=== PATIENT | male | born 1955 | race Caucasian/White ===

== ENCOUNTER 2016-08-02 22:16 | Inpatient (IN) | payer MEDICARE ==
[~2016-08-02] VITALS: Ht 188 cm; Wt 88.8 kg
[~2016-08-02 22:16] MED LIST: ALIGN4 MG PO; ALLER-CHLOR4 MG; ALLER-CHLOR4 MG PO; AMOXICILLIN875 MG PO; ANTIVERT12.5 MG PO; ASPIRIN 81 MG E81 MG PO; ATIVAN0.5 MG PO; BAYER CHEWABLE81 MG PO; CENTRUM SILVER1 TA2 PO; CLARITIN 10 MG10 MG PO; COREG12.5 MG PO; COREG25 MG PO; DOXYCYCLINE HY100 M2 PO; FLUNISOLIDE29 MCG NASAL; FUROSEMIDE40 MG PO; KLOR-CON 1010 MEQ PO; LASIX40 MG PO; MECLIZINE HCL25 MG PO; MUCINEX DM ER1 EAC1 PO; MUCINEX600 MG PO; MUCUS RELIEF400 MG PO; MULTI-DAY VITAM1 TAB PO; PLAVIX75 MG PO; POTASSIUM CHLO10 ME1 PO; PRAVACHOL20 MG PO; PRILOSEC20 MG PO; PRINIVIL20 MG PO; PROBIOTIC1 EAC1 PO; RANEXA500 MG PO; SYMBICORT 16010.2 GM INH; VENTOLIN HFA18 GM INH; ZESTRIL20 MG PO; ZYRTEC10 MG PO
[2016-08-02 22:50] LABS: BASOPHILS 0.2 % (0.0-2.0); EOSINOPHILS 0 % (0-7); HEMATOCRIT 30.4 % (42.0-54.0); HEMOGLOBIN 10.3 g/dL (13.5-17.5); IMMATURE GRANULOCYTES 4.6 % (0-5); LYMPHOCYTES 21.7 % (15-50); MCH 32.1 pg (26.0-34.0); MCHC 33.9 g/dL (31.0-37.0); MCV 94.7 fL (80.0-100.0); MEAN PLATELET VOLUME 9.9 fL (7.4-10.4); MONOCYTES 5.9 % (2-11); NEUTROPHILS 67.6 % (40-80); PLATELET COUNT 120 10x3/uL (130-400); RBC 3.21 10x6/uL (4.20-6.10); RDW 12.1 % (11.5-14.5); WBC 6.3 10x3/uL (4.8-10.8)
[2016-08-02 22:56] LABS: INR 1.58 (0.85-1.17); PROTIME 18.8 SECONDS (11.6-15.0)
[2016-08-02 22:57] LABS: APTT 92.2 SECONDS (22.8-39.4)
[2016-08-02 23:16] LABS: ALBUMIN 2.3 g/dL (3.4-5.0); ALKALINE PHOSPHATASE 100 U/L (46-116); ALT (SGPT) 696 U/L (10-68); BILIRUBIN - TOTAL 0.48 mg/dL (0.2-1.3); CALCIUM 7.9 mg/dL (8.5-10.1); CARBON DIOXIDE 18.2 mmol/L (21.0-32.0); CKMB 47.3 U/L (0.0-3.6); CREATINE KINASE 730 UL (21-232); CREATININE - SERUM 0.7 mg/dL (0.6-1.3); POTASSIUM - SERUM 5.5 mmol/L (3.5-5.1); PROTEIN - SERUM 5.4 g/dL (6.4-8.2); UREA NITROGEN 5 mg/dL (7-18); eGFR NON AFRICAN AMERICAN > 90 mL/min (90-120)
[2016-08-02 23:26] LABS: CALC OSMOLALITY 229 mosm/kg (275-300); CHLORIDE - SERUM 78 mmol/L (98-107); GLUCOSE 68 mg/dL (74-106); SODIUM 116 mmol/L (136-145)
[2016-08-02 23:27] LABS: TROPONIN-I 1.238 ng/mL (0.000-0.060)
[2016-08-03 01:30] VITALS: BP 54/32
--- NOTE | 2016-08-03 01:30 | NUR ---
PT RECVD TO ROOM 2301 VIA STRETCHER. RT AND ER STAFF AT BEDSIDE. TRANSFERRED TO ICU BED AND PLACED ON ICU MONITORS. ETT PATENT AND SECURED TO VENT PER RT. ST ON THE MONITOR. PRESSORS IN USE VIA PIV. ABD DISTENDED. IDANIA RED BLOOD IN ORAL CAVITY. HYPOTHERMIC. TITO HUGGER IN USE. PALE/CYANOTIC. ADMISSION ASSESSMENT AND HISTORY COMPLETED. SEE FLOWSHEETS. MOM AT BEDSIDE.
[2016-08-03 01:50] VITALS: BP 54/32
[2016-08-03 02:00] VITALS: BP 74/56
--- NOTE | 2016-08-03 02:00 | NUR ---
PRESSOR SUPPORT AT MAX LEVEL. DOPAMINE, LEVOPHED, AND VASOPRESSIN GTTS INFUSING. HYPOTENSIVE. ST ON THE MONITOR. UNRESPONSIVE ON MECH VENT.
[2016-08-03 03:00] VITALS: BP 110/74
--- NOTE | 2016-08-03 03:23 | NUR ---
PEA ON THE MONITOR. NO PULSE FOUND. CPR STARTED AND BLS/ACLS PROTOCOL INITIATED. SEE CODE BLUE SHEET.
--- NOTE | 2016-08-03 03:45 | NUR ---
DR LANE AND DR SHARMA AT BEDSIDE. CODE ENDED. ST 110... PRESSOR SUPPORT AT MAX LEVEL WITH DOPAMINE, LEVOPHED, AND VASOPRESSIN GTTS.
--- NOTE | 2016-08-03 04:15 | NUR ---
NO PULSE...PEA ON THE MONITOR CODE PROTOCOL INITIATED. DR SHARMA AT BEDSIDE. SEE CODE BLUE SHEETS.
--- NOTE | 2016-08-03 04:22 | NUR ---
CODE STOPPED. NO PULSE. PEA ON THE MONITOR. DR SHARMA AT BEDSIDE.
[2016-08-03 05:30] VITALS: BP 54/32; Ht 188 cm; Wt 88.8 kg
--- NOTE | 2016-08-03 07:51 | NUR ---
[facility] HERE. BODY RELEASED.
--- NOTE | 2016-08-03 15:50 | HP ---
PATIENT: SERGIO MENESES MEDICAL RECORD: [id number] ACCOUNT: [id number] LOCATION:[facility] D.2302 : 53 ADMISSION DATE: 08/03/16 HISTORY AND PHYSICAL EXAMINATION HISTORY OF PRESENT ILLNESS: A 61-year-old white male went syncope at home, his brother began performing a CPR, ambulance was called and the patient was code blue, ambulance brought the patient in from outlying area and ACLS protocol was followed. He was found to be in asystole in the Emergency Room and ACLS protocol was followed and the patient did reestablish a heart rate and was intubated, of course and transferred to the ICU. The patient was monitored in the ICU for 2 hours and while I was doing my H&P, the patient went up bradycardic and then asystole again, ciera guo was called the second time. The patient was given 3 doses of epinephrine, 2 doses of atropine, 2 doses a bicarbonate, one 360 joule shock and was able to reestablish a rhythm, family was kept informed. PAST MEDICAL HISTORY: Significant for TIA, seizures, vertigo, hypertension, CHF, WI, coronary artery disease, peripheral vascular disease, COPD, and emphysema. The patient has had PTCA in the past. He also had a peripheral right leg stent and a tonsillectomy. ALLERGIES: The patient has no known drug allergies. MEDICATIONS: Include, Prinivil, Claritin, guaifenesin, probiotics, meclizine, Lasix, Pravachol, Nasarel nose spray, Ativan, Ranexa, Symbicort, Plavix, aspirin, Coreg, potassium, and vitamin. SOCIAL HISTORY: The patient does continue to smoke at least 1 pack per day and does drink alcohol on a daily basis. REVIEW OF SYSTEMS: Unobtainable. PHYSICAL EXAMINATION: GENERAL: The patient is presently intubated, has bloody secretions present from his mouth. HEENT: He ____ at the present time Eyes are fixed and glazed. Mucous membranes are noted. RESPIRATORY: He has wheezing heard on the left and rales heard on the right. HEART: Bradycardic and very shallow, heart rate with I/ systolic ejection murmur. ABDOMEN: Slightly distended, soft and nontender. Positive bowel sounds. EXTREMITIES: He has acrocyanosis on his extremities. Clubbing is present and unable to move any extremities at the present time. ASSESSMENT: 1. Syncope. 2. Code Blue. 3. Arrhythmia. 4. Cardiac arrest. 5. Respiratory arrest. 6. Chronic obstructive pulmonary disease. 7. Myocardial infarction. 8. Peripheral vascular disease. PLAN: The patient is presently stabilized. Cardiology consultation was HISTORY AND PHYSICAL [id number] SERGIO MENESES obtained. Pulmonary consultation is being obtained. The patient was given ABGs, check laboratory appropriately and follow ACLS protocol, appreciated ER physician, ____ being involved in the case. TRANSINT:[id number] Voice Confirmation ID: [id number] DOCUMENT ID: [id number] DEDE LANE MD at 1550 CC: [id number] DICTATION DATE: 08/03/16354 CERAMICS INSTRUCTOR: 08/03/16 0543 DIS IN 08/03/16 [facility] [address] [place] [address]
--- NOTE | 2016-08-04 16:27 | NUR ---
Per CMS protocol, restraint report logged into data base.
--- NOTE | 2016-09-09 10:09 | DS ---
PATIENT:SERGIO MENESES :51 MEDICAL RECORD: [id number] DISCHARGE SUMMARY ADMISSION DATE: 08/03/16 DISCHARGE DATE: 08/03/16 Summary DATE: 08/03/2016 DISCHARGE DIAGNOSES: 1. Cardiac arrest. 2. Cardiogenic shock. 3. Myocardial infarction. 4. Arrhythmias. 5. Syncopal episode. 6. Coronary artery disease. 7. Chronic obstructive pulmonary disease. 8. Peripheral vascular disease. 9. Congestive heart failure. 10. Seizure disorder. 11. Hyperlipidemia. 12. Tobacco abuse. 13. Hypokalemia. 14. Anemia. 15. Hyperkalemia. 16. Hyponatremia. HOSPITAL COURSE: Full H&P is located elsewhere on the chart on this 61-year-old male, who was admitted to intensive care after cardiac arrest. He was intubated, requiring mechanical ventilation. He had had a syncopal episode at home and had CPR initiated in the field and was brought to the ED by EMS. He was resuscitated times 2 in the ED prior to arrival in the intensive care. He was on full pressor support with dopamine and Levophed and vasopressin drips. He arrested twice within the next 2 hours and the last time, resuscitation efforts were unsuccessful despite ACLS protocols. He was pronounced at 4:22 a.m. by the ER physician. DISCHARGE DISPOSITION: The body was released to the home. TRANSINT:[id number] Voice Confirmation ID: [id number] DOCUMENT ID: [id number] Dictated By: JARRET ALEXANDER I have interviewed/examined the above patient and agree with these documented findings. DEDE LANE MD at 1009 at 1010 CC: [id number] DICTATION DATE: 09/05/16 1502 COMPUTED TOMOGRAPHY TECHNOLOGIST: 09/06/16 0733 DIS IN 08/03/16 [facility] [id number] [place] [address]
== END 2016-08-03 04:22 ==
LOC: D.ER 22:16 → D.ICU 08-03 00:38
PROVIDERS: Family Medicine; ADMIT Family Medicine
PROC: 5A1935Z Respiratory Ventilation, Less than 24 Consecutive Hours (ICD-10-PCS; 2016-08-02)
PROC: 5A12012 Performance of Cardiac Output, Single, Manual (ICD-10-PCS; principal; 2016-08-03)
PROC: 0T9B70Z Drainage of Bladder with Drainage Device, Via Natural or Artificial Opening (ICD-10-PCS; 2016-08-03)
DX: I46.9 Cardiac arrest, cause unspecified (principal); I21.3 ST elevation (STEMI) myocardial infarction of unspecified site; E87.1 Hypo-osmolality and hyponatremia; R55 Syncope and collapse; R56.9 Unspecified convulsions; I11.0 Hypertensive heart disease with heart failure; I50.9 Heart failure, unspecified; I25.10 Atherosclerotic heart disease of native coronary artery without angina pectoris; I73.9 Peripheral vascular disease, unspecified; J44.9 Chronic obstructive pulmonary disease, unspecified; Z86.73 Personal history of transient ischemic attack (TIA), and cerebral infarction without residual deficits; I25.2 Old myocardial infarction; Z95.5 Presence of coronary angioplasty implant and graft; Z72.0 Tobacco use